=== PATIENT | male | born 1995 | race Caucasian/White ===

== ENCOUNTER 2016-12-08 21:15 | Emergency (ER) | payer SELFPAY ==
[~2016-12-08] VITALS: Ht 193 cm; Wt 87.1 kg
[~2016-12-08 21:15] MED LIST: HYDR-971 PO; SULF1TAB24 PO
[2016-12-08 21:20] VITALS: BP 143/91
--- NOTE | 2016-12-08 21:30 | ED.ADGEN ---
Past History Past Medical History: Anxiety, Depression, Schizophrenia Past Surgical History: No Surgical History Alcohol Use: None Drug Use: None Adult General Chief Complaint Chief Complaint " I am depressed.. I ve been thinking about killing my self.. like to day I was thinking about jumping in front of a car.. .. and then about cutting my throat.. I did attempt to kill myself when I was 14.. . I just cut myself a little. .. " I am under a lot of stress. .. I am .. and we are now... and. I ve just started taking .. Risperidone.... For my diagnosis of schizophrenia... " HPI HPI Patient is a 21 year old male who presents with above hx and complaints of suicidal ideation and depression. Pt. has history of schizophrenia and currently taking risperidone as directed. Patient has been having suicidal ideation such as jumping in front of a car or cutting his throat.. Patient has had a previous episode with suicidal attempt at age 14. Patient recently has from his . Social's ecological stressors have been very high recently. Has been having thoughts of paranoia, racing thoughts and anxiety. Patient has a good relationship with his father and is able to talk to his father about his thoughts of depression and suicide. Patient is currently staying with his father. Patient does have follow-up with counseling. Patient has been employed as a computer games developer. Patient denies alcohol use or overuse of [id number] meds. Review of Systems Review of Systems Constitutional: Denies fever or chills [] Eyes: Denies change in visual acuity, redness, or eye pain [] HENT: Denies nasal congestion or sore throat [] Respiratory: Denies cough or shortness of breath [] Cardiovascular: No additional information not addressed in HPI [] GI: Denies abdominal pain, nausea, vomiting, bloody stools or diarrhea [] : Denies dysuria or hematuria [] Musculoskeletal: Denies back pain or joint pain [] Integument: Denies rash or skin lesions [] Neurologic: Denies headache, focal weakness or sensory changes [] Endocrine: Denies polyuria or polydipsia [] Family History Family History Noncontributory Current Medications Current Medications Current Medications Medications (Trade) Dose Ordered Sig/Abdiel Start Time Stop Time Status Last Admin Dose Admin Lactated Ringer's (Iv Lactated Ringers) 1,000 ml @ 1,000 mls/hr Q1H 12/08/16 22:15 Lorazepam (Ativan) 2 mg 1X ONCE 12/09/16 00:30 12/09/16 00:31 DC Magnesium Hydroxide (Milk Of Magnesia) 2,400 mg 1X ONCE 12/09/16 01:00 12/09/16 01:01 DC Potassium Chloride (KCl Oral Soln) 40 meq 1X ONCE 12/09/16 01:00 12/09/16 01:01 DC Allergies Allergies Allergies Coded Allergies Type Severity Reaction Last Updated Verified No Known Drug Allergies 12/31/15 No Physical Exam Physical Exam Constitutional: Well developed, well nourished, mild emotional distress, non- toxic appearance. [] HENT: Normocephalic, atraumatic, bilateral external ears normal, oropharynx dry, , no oral exudates, nose normal. [] Eyes: PERRLA, EOMI, conjunctiva normal, no discharge. [] Neck: Normal range of motion, no tenderness, supple, no stridor. [] Cardiovascular:Heart rate regular rhythm, no murmur [] Lungs & Thorax: Bilateral breath sounds clear to auscultation [] Abdomen: Bowel sounds normal, soft, no tenderness, no masses, no pulsatile masses. [] Skin: Warm, dry, no erythema, no rash. [] Back: No tenderness, no CVA tenderness. [] Extremities: No tenderness, no cyanosis, no clubbing, ROM intact, no edema. [] Neurologic: Alert and oriented X 3, normal motor function, normal sensory function, no focal deficits noted. DTR +2 patella and brachial. Psychologic: Affect anxious, judgement normal, mood depressed. Current Patient Data Lab Results Laboratory Tests Test 12/08/16 23:00 White Blood Count 6.3x10^3/uL (4.0-11.0) Red Blood Count 4.87x10^6/uL (4.30-5.70) Hemoglobin 13.9g/dL (13.0-17.5) Hematocrit 40.1% (39.0-53.0) Mean Corpuscular Volume 82fL (79-100) Mean Corpuscular Hemoglobin 28pg (25-35) Mean Corpuscular Hemoglobin Concent 35g/dL (31-37) Red Cell Distribution Width 12.6% (11.5-14.5) Platelet Count 231x10^3/uL (140-400) Neutrophils (%) (Auto) 59% (31-73) Lymphocytes (%) (Auto) 29% (24-48) Monocytes (%) (Auto) 10% (0-9) H Eosinophils (%) (Auto) 2% (0-3) Basophils (%) (Auto) 1% (0-3) Neutrophils # (Auto) 3.7x10^3uL (1.8-7.7) Lymphocytes # (Auto) 1.8x10^3/uL (1.0-4.8) Monocytes # (Auto) 0.6x10^3/uL (0.0-1.1) Eosinophils # (Auto) 0.1x10^3/uL (0.0-0.7) Basophils # (Auto) 0.0x10^3/uL (0.0-0.2) Prothrombin Time 11.1SEC (9.4-11.4) Prothrombin Time INR 1.1 (0.9-1.1) PTT 30SEC (23-33) Sodium Level 142mmol/L (136-145) Potassium Level 3.3mmol/L (3.5-5.1) L Chloride Level 103mmol/L (98-107) Carbon Dioxide Level 33mmol/L (21-32) H Anion Gap 6 (6-14) Blood Urea Nitrogen 10mg/dL (8-26) Creatinine 1.0mg/dL (0.7-1.3) Estimated GFR (Cockcroft-Gault) 95.3 Glucose Level 102mg/dL (70-99) H Calcium Level 9.0mg/dL (8.5-10.1) Magnesium Level 1.6mg/dL (1.8-2.4) L Total Bilirubin 0.4mg/dL (0.2-1.0) Direct Bilirubin 0.1mg/dL (0.0-0.2) Aspartate Amino Transferase (AST) 19U/L (15-37) Alanine Aminotransferase (ALT) 18U/L (16-63) Alkaline Phosphatase 118U/L (46-116) H Total Protein 7.6g/dL (6.4-8.2) Albumin 4.5g/dL (3.4-5.0) Salicylates Level 1.0mg/dL (2.8-20.0) L Salicylate Last Dose Date Unk Salicylate Last Dose Time Unk Urine Opiates Screen Neg (NEG) Urine Methadone Screen Neg (NEG) Acetaminophen Level < 2.0mcg/mL (10-30) L Acetaminophen Last Dose Date Unk Acetaminophen Last Dose Time Unk Urine Barbiturates Neg (NEG) Urine Phencyclidine Screen Neg (NEG) Urine Amphetamine/Methamphetamine Neg (NEG) Urine Benzodiazepines Screen Neg (NEG) Urine Cocaine Screen Neg (NEG) Urine Cannabinoids Screen Neg (NEG) Ethyl Alcohol Level < 10mg/dL (0-10) Urine Ethyl Alcohol Neg (NEG) EKG EKG My interpretation of EKG shows sinus tachycardia, 124 bpm, mild anterolateral changes, but no findings of acute STEMI with contralateral changes. [] Radiology/Procedures Radiology/Procedures [] Course & Med Decision Making Course & Med Decision Making Pertinent Labs and Imaging studies reviewed. (See chart for details). Discussed presentation, testing and tx. plan with Dr. Brown . See Tele. psych. report. Patient to follow up with primary counselor and primary care. Patient take meds as directed. Patient to push fruit juices. Patient review all labs with primary care and [] counselor . Return if any concerns. Attempt to get an earlier apt. Final Impression Final Impression 1. Depression 2. Suicidal ideation 3. Schizophrenia [] 4. Hypomagnesium 5. Hypokalemia 6. Mild dehydration Problems: Dragon Disclaimer Dragon Disclaimer This electronic medical record was generated, in whole or in part, using a voice recognition dictation system. DUSTY POPE MD Dec 08, 2016 21:30
[2016-12-08] MEDS ORDERED: CHLO1CAP PO (21:54)
--- NOTE | 2016-12-08 22:09 | EKG ---
[address] [address] Test Date: 2016-12-08 Test Time: 22:04:46 Pat Name: DOROTA GARCIA Department: Room: Gender: M Territory Account Manager: RAQUEL : 1995 Requested By: DUSTY POPE Order Number: [id number] Reading MD: Measurements Intervals [place] Rate: 124 P: 64 TX: 136 QRS: 68 QRSD: 100 T: 36 QT: 308 QTc: 446 Interpretive Statements SINUS TACHYCARDIA QRS(T) CONTOUR ABNORMALITY CONSIDER ANTEROLATERAL MYOCARDIAL DAMAGE CONSIDER INFERIOR MYOCARDIAL DAMAGE POSSIBLY ABNORMAL ECG RI6.01 Unconfirmed report No previous ECG available for comparison
[2016-12-08] MEDS ORDERED: IV RINGERS SOLUTION,LACTATED 1,000 ML IV SCH (22:15)
[2016-12-09 00:17] LABS: BARBITURATES NEG (NEG); BENZODIAZEPINES NEG (NEG); CANNABINOIDS NEG (NEG); COCAINE NEG (NEG); METHADONE NEG (NEG); OPIATES NEG (NEG); PHENCYCLIDINE NEG (NEG)
[2016-12-09 00:18] LABS: AMPHETAMINE/METHAMPHETAMINE NEG (NEG)
[2016-12-09 00:23] LABS: ALBUMIN 4.5 g/dL (3.4-5.0); DIRECT BILIRUBIN 0.1 mg/dL (0.0-0.2); GFR 95.3; MAGNESIUM 1.6 mg/dL (1.8-2.4); POTASSIUM 3.3 mmol/L (3.5-5.1); TOTAL BILIRUBIN 0.4 mg/dL (0.2-1.0); TOTAL PROTEIN 7.6 g/dL (6.4-8.2)
[2016-12-09 00:24] LABS: BASO % 1 % (0-3); EOS # 0.1 x10^3/uL (0.0-0.7); EOS % 2 % (0-3); HEMATOCRIT 40.1 % (39.0-53.0); HEMOGLOBIN 13.9 g/dL (13.0-17.5); LYMPH # 1.8 x10^3/uL (1.0-4.8); LYMPH % 29 % (24-48); MEAN CORPUSCULAR HEMOGLOBIN 28 pg (25-35); MEAN CORPUSCULAR HGB CONC 35 g/dL (31-37); MEAN CORPUSCULAR VOLUME 82 fL (79-100); MONO # 0.6 x10^3/uL (0.0-1.1); MONO % 10 % (0-9); NEUT # 3.7 x10^3uL (1.8-7.7); NEUT % 59 % (31-73); PLATELET COUNT 231 x10^3/uL (140-400); RED BLOOD COUNT 4.87 x10^6/uL (4.30-5.70); RED CELL DISTRIBUTION WIDTH 12.6 % (11.5-14.5); WHITE BLOOD COUNT 6.3 x10^3/uL (4.0-11.0)
[2016-12-09 00:25] LABS: ACETAMIN < 2.0 mcg/mL (10-30)
[2016-12-09 00:26] LABS: ETHANOL < 10 mg/dL (0-10)
[2016-12-09] MEDS ORDERED: LORAZEPAM 1 MG TABLET. PO ONE (00:30)
[2016-12-09] MEDS ORDERED: POTASSIUM CHLORIDE 20 MEQ/15 ML ORAL LIQUID. PO ONE (01:00)
[2016-12-09] MEDS ORDERED: MAGNESIUM HYDROXIDE 2,400 MG/30 ML ORAL.SUSP. PO ONE (01:00)
[2016-12-09 02:43] LABS: BACTERIA,URINE 0 /HPF (0-FEW); BILIRUBIN,URINE NEG (NEG); CLARITY,URINE CLEAR; COLOR,URINE STRAW; GLUCOSE,URINE NEG (NEG); NITRITE,URINE NEG (NEG); RBC,URINE 0 /HPF (0-2); SQUAMOUS EPITHELIAL CELL,UR OCC /LPF; UROBILINOGEN,URINE 0.2 mg/dL (0.2 mg/dL); WBC,URINE 0 /HPF (0-4)
[2016-12-09 02:44] LABS: SPERM,URINE PRESENT /HPF
== END 2016-12-09 01:20 | disposition home or self-care (01) ==
LOC: ER 21:15 → EEVIPCON 21:15 → ER 12-09 01:20
DX: R45.851 Suicidal ideations (principal); F32.9 Major depressive disorder, single episode, unspecified; F20.9 Schizophrenia, unspecified; E83.42 Hypomagnesemia; E87.6 Hypokalemia; E86.0 Dehydration; F41.9 Anxiety disorder, unspecified
CPT/HCPCS: 36415; 80048; 80076; 81001; 83735; 84443; 85027; 85610; 85730; 93005; 99285; G0480; G0481; G6038; 99284; 80196

== ENCOUNTER 2017-02-10 14:13 | Emergency (ER) | payer SELFPAY ==
[~2017-02-10] VITALS: Ht 193 cm; Wt 89.1 kg
[~2017-02-10 14:13] MED LIST changes: +CHLO1CAP PO
[2017-02-10 14:25] VITALS: BP 143/91
[2017-02-10] MEDS ORDERED: SULF1TAB24 PO (14:45)
--- NOTE | 2017-02-10 14:45 | PHYS DOC ---
Past History Past Medical History: Anxiety, Depression Past Surgical History: No Surgical History Alcohol Use: None Drug Use: None Adult General Chief Complaint Chief Complaint: TOE PROBLEM HPI HPI Patient is a 21-year-old male who presents ambulatory to the emergency department with a complaint of left great toe pain. Patient has had problems with ingrown toenails. His toes started to swell and hurt today. He was on his feet at work, he works at [employer]. Review of Systems Review of Systems Constitutional: Denies fever or chills [] Psychiatric: Denies current psychiatric symptoms, he has been seen for this before but not bothering him currently Allergies Allergies Allergies Coded Allergies Type Severity Reaction Last Updated Verified No Known Drug Allergies 12/31/15 No Physical Exam Physical Exam Constitutional: Well developed, well nourished, no acute distress, non-toxic appearance. Patient is unkempt and not clean wearing dirty shoes with no socks. HENT: Normocephalic, atraumatic, bilateral external ears normal, nose normal. [] Eyes: conjunctiva normal, no discharge. [] Neck: Normal range of motion, no stridor. [] Skin: Warm, dry, no erythema, no rash. [] Extremities: Left great toe has some diffuse redness, swelling. Medial aspect of the great toenail has some bloody and purulent drainage with scabbing. Neurologic: Alert and oriented X 3, normal motor function, normal sensory function, no focal deficits noted. [] Current Patient Data Vital Signs Vital Signs Date Time Temp Pulse Resp B/P (MAP) Pulse Ox O2 Delivery O2 Flow Rate FiO2 02/10/17 14:25 97.9 16 100 Room Air EKG EKG [] Radiology/Procedures Radiology/Procedures [] Course & Med Decision Making Course & Med Decision Making Pertinent Labs and Imaging studies reviewed. (See chart for details) 21-year-old male with infected ingrown toenail, see instructions for plan. [] Dragon Disclaimer Dragon Disclaimer This chart was dictated in whole or in part using Voice Recognition software in a busy, high-work load, and often noisy Emergency Department environment. It may contain unintended and wholly unrecognized errors or omissions. Departure Departure: Impression: Primary Impression: Ingrown right big toenail Additional Impression: Cellulitis of great toe of left foot Disposition: HOME, SELF-CARE Condition: STABLE Referrals: PCP,NO (PCP) Patient Instructions: Infected Ingrown Toenail Additional Instructions: Continue to soak 3-4 times a day in warm soapy water, clean gently with a washcloth or soft toothbrush to keep a scab from forming and encourage any pus to drain. If this continues to be a problem, see a senior capital markets specialist about possible procedure on your toenail. Scripts Sulfamethoxazole/Trimethoprim (BACTRIM DS TABLET) 1 Each Tablet 1 TAB PO BID, #20 TAB Prov: LIZETH MATHEW MD 02/10/17 Problem Qualifiers LIZETH MATHEW MD February 10, 2017 14:45
== END 2017-02-10 14:50 | disposition home or self-care (01) ==
LOC: ER 14:13
DX: L60.0 Ingrowing nail (principal); L03.039 Cellulitis of unspecified toe
CPT/HCPCS: 99283

== ENCOUNTER 2017-07-07 15:39 | Emergency (ER) | payer SELFPAY ==
[2017-07-07] MEDS ORDERED: SULF1TAB24 PO (16:09)
--- NOTE | 2017-07-07 16:09 | PHYS DOC ---
Past History Past Medical History: Anxiety, Depression Past Surgical History: No Surgical History Alcohol Use: None Drug Use: None Adult General Chief Complaint Chief Complaint: TOE PROBLEM HPI HPI Patient is a 22-year-old male with a complaint of right great toe ingrown toenail. Patient states his ingrown toenail has been bothering him for a few days, and it actually looks a little better today, because he has been cutting on it himself and some pus drained out. 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 Review of Systems Review of Systems Constitutional: Denies fever or chills [] Allergies Allergies Allergies Coded Allergies Type Severity Reaction Last Updated Verified No Known Drug Allergies 07/07/17 No Physical Exam Physical Exam Constitutional: Well developed, well nourished, no acute distress, non-toxic appearance. Alert, ambulatory, warm and dry. HENT: Normocephalic, atraumatic, bilateral external ears normal, nose normal. [ ] Eyes: conjunctiva normal, no discharge. [] Neck: Normal range of motion, no stridor. [] Skin: Warm, dry, no erythema, no rash. [] Extremities: Right foot: The patient's foot, including toenails, is extremely dirty. The great toenail is intact but has had some chronic deformity. There is mild swelling and redness of the distal aspect of the great toe, especially on the medial aspect of the toenail. There is no paronychia or abscess noted. There is some traumatized tissue where the patient has been picking and digging at his toenail. Neurologic: Alert and oriented X 3, normal motor function, no focal deficits noted. [] Current Patient Data Vital Signs Vital Signs Date Time Temp Pulse Resp B/P (MAP) Pulse Ox O2 Delivery O2 Flow Rate FiO2 07/07/17 15:53 98.6 109 100 Room Air EKG EKG [] Radiology/Procedures Radiology/Procedures [] Course & Med Decision Making Course & Med Decision Making Pertinent Labs and Imaging studies reviewed. (See chart for details) 22-year-old male presents with an infected ingrown toenail. I advised the patient on keeping his toenails clean, advised him to stop cutting and picking at his toenail. We will start him on Bactrim. The patient was hoping to get his toenail cut out, but I advised him that I don't do that in the emergency department, and we need to treat his acute infection. I advised him to follow up with a [employer] consultant as his infection is improving and some type of a partial surgical treatment might be an option. [] Dragon Disclaimer Dragon Disclaimer This chart was dictated in whole or in part using Voice Recognition software in a busy, high-work load, and often noisy Emergency Department environment. It may contain unintended and wholly unrecognized errors or omissions. Departure Departure: Impression: Primary Impression: Ingrown right big toenail Disposition: HOME, SELF-CARE Condition: STABLE Referrals: PCP,NO (PCP) Patient Instructions: Infected Ingrown Toenail Additional Instructions: As we discussed, it's very important to keep your toenails clean. Avoid picking at your toenails or trying to remove them. Soak your foot in hot soapy water 3 times a day for 10-15 minutes, then use a brush such as an old toothbrush to gently clean your toenails thoroughly. Wear clean white socks every day. Make sure you are washing your socks everyday. Make an appointment for follow-up with a [employer] consultant. When your toenail is all healed up, a [employer] consultant may do some trimming to make it less likely to get ingrown. Scripts Sulfamethoxazole/Trimethoprim (BACTRIM DS TABLET) 1 Each Tablet 1 TAB PO BID, #20 TAB Prov: LIZETH MATHEW MD 07/07/17 LIZETH MATHEW MD Jul 07, 2017 16:09
== END 2017-07-07 16:18 | disposition home or self-care (01) ==
LOC: ER 15:39
DX: L60.0 Ingrowing nail (principal)
CPT/HCPCS: 99283